=== PATIENT | female | born 1975 | race Hispanic/Latino ===

== ENCOUNTER 2021-08-02 14:56 | Emergency (ER) | payer MEDICAID, OTHER ==
--- NOTE | 2021-08-02 15:39 | Emergency Department Report ---
HPI - General Chief Complaint: Wound/Laceration Time Seen by Provider: 08/02/21 15:13 - HPI HPI: 46-year-old female presents to the emergency department via EMS from home with complaint of a progressively worsening, painful, ulceration to the le ft inner thigh. The patient has a history of fibromyalgia, anemia requiring transfusions, and has severe morbid obesity. She denies any trauma or injury that initially started this ulceration. This initially started in April and it was much smaller at that time. However, since that time, she says that every time she was to get up and ambulate that "it would tear some of my skin." Over the past few months she has become bed bound. Her daughter has been trying to do home wound care for her. She denies any fever, bleeding, discharge. ED Past Medical Hx - Past Medical History Hx Hypertension: Yes Hx Psychiatric Treatment: Yes (depression,anxiety,insomnia) Additional medical history: fibromyalgia, back/shoulder issues - Surgical History Hx Cholecystectomy: Yes Additional Surgical History: D&CX2, gastric bypass, peterson breast reduction, All extremities S/P from [facility] [place] - Social History Smoking Status: Never Smoker Substance Use Type: None - Medications Home Medications: Home Medications Medication Instructions Recorded Confirmed Last Taken Type Chlorhexidine Mouthwash [Peridex] 15 ml MM BID #1 bottle 03/24/19 Unknown Rx Clindamycin [Clindamycin CAP] 300 mg PO Q8H #30 cap 11/18/19 Unknown Rx Multivitamin/Iron/Folic Acid 1 each PO DAILY #30 tablet 11/18/19 Unknown Rx [Multivitamin with Iron Tablet] Prenat 115/Iron Fum/Folic/Dss 1 each PO DAILY #30 tablet 11/18/19 Unknown Rx [Pnv-Ferrous Lhbtqneg-Etne-IQ] Nystatin [Nystop Powder] 1 applicatio TP BID #1 bottle 08/02/21 Unknown Rx Sulfamethoxazole/Trimethoprim 1 each PO BID #14 tab 08/02/21 Unknown Rx [Bactrim DS TAB] traMADoL [Ultram 50 MG tab] 50 mg PO Q6HR PRN #12 tablet 08/02/21 Unknown Rx ED Review of Systems ROS: Stated complaint: Possible Sepsis Other details as noted in HPI Comment: All other systems reviewed and negative Constitutional: denies: chills, fever Eyes: denies: eye pain, vision change ENT: denies: ear pain, throat pain Respiratory: denies: cough, shortness of breath Cardiovascular: denies: chest pain, palpitations Gastrointestinal: denies: abdominal pain, vomiting Genitourinary: denies: dysuria, discharge Musculoskeletal: denies: back pain, arthralgia Skin: other (painful skin ulceration to inner left thigh). denies: rash, lesions Neurological: denies: numbness, paresthesias Physical Exam - Physical Exam Vital Signs: Vital Signs 08/02/21 15:01 Temperature 97.4 F L Pulse Rate 87 Respiratory 16 Rate Blood Pressure 131/76 [Right] O2 Sat by Pulse 96 Oximetry Physical Exam: GENERAL: The patient is well-developed well-nourished. HENT: Normocephalic. Atraumatic. Patient has moist mucous membranes. EYES: Extraocular motions are intact. NECK: Supple. Trachea is midline. CHEST/LUNGS: Clear to auscultation. There is no respiratory distress noted. HEART/CARDIOVASCULAR: Regular. There is no tachycardia. There is no murmur. ABDOMEN: Abdomen is soft, nontender. Patient has normal bowel sounds. Severe morbid obesity. SKIN: Skin is warm and dry. There is a stage III ulcer seen to the soft tissue of the medial thigh with some exposed subcutaneous fat and the ulcer is about 10 centimeters in its greatest dimension. No surrounding erythema. No bleeding or purulent discharge. NEURO: The patient is awake, alert, and oriented. The patient is cooperative. The patient has no focal neurologic deficits. Normal speech. MUSCULOSKELETAL: There is no tenderness or deformity. There is no limitation range of motion. There is no evidence of acute injury. ED Course Vital Signs 08/02/21 15:01 Temperature 97.4 F L Pulse Rate 87 Respiratory 16 Rate Blood Pressure 131/76 [Right] O2 Sat by Pulse 96 Oximetry ED Medical Decision Making - Lab Data Result diagrams: 08/02/21 15:40 08/02/21 15:40 - Radiology Data Radiology results: report reviewed LEFT FEMUR 2 VIEWS INDICATION / CLINICAL INFORMATION: left inner thigh ulcerati on COMPARISON: None available. FINDINGS: BONES / JOINT(S): No acute fracture or subluxation. No bony destruction identified. SOFT TISSUES: No significant abnormality. ADDITIONAL FINDINGS: None. - Medical Decision Making This patient presents to the emergency department with a complaint of a painful ulcer to the inner left thigh that has been going on and getting progressively worse since about October of last year. The patient came in today because she has a difficult time with ambulation chronically, and has difficulty following up in any type of outpatient setting. Therefore, with family's encouragement she decided to try and get this evaluated in the emergency department and called for EMS. The patient has severe morbid obesity with a BMI of 83. She appears to have some distorted anatomy due to her obesity. The adipose tissue from the upper pelvis and lower abdomen hangs downto the level of her knees. Similarly, the adipose tissue from the thigh ends up posteriorly to the point where she is laying on her own thigh tissue and it is abutting the soft tissue of her abdomen and upper pelvic region. The patient was able to assist in visualizing the ulcer. It is about 10 cm in its greatest diameter and is about a stage III ulcer going into the subcutaneous tissue. There is no surrounding erythema, bleeding, purulent discharge. Patient's vital signs have been reassuring including being afebrile. There is no leukocytosis. Overall this does not appear to be an infected ulcer or wound. An x-ray was done of the left femur that includes the ulcerated tissue and there is no evidence of any gas or signs of osteomyelitis. This does not appear consistent with gas gangrene, any type of necrotizing infection. Her CMP is remarkable for mild hyperkalemia with potassium level of 5.3, and an elevated AST that is most likely secondary to hepatic steatosis. The patient was given a small dose of Kayexalate for the hyperkalemia. Given the mild transaminitis we discussed avoiding alcohol and Tylenol/acetaminophen. The patient is also been given a referral for [facility]. [facility] was contacted and has initiated a referral for home health care to include PT, OT and wound care. In case the patient is able to get to an outpatient referral, she has also been given a referral for the local wound care clinic. She has been discharged home with a prescription for pain medication, and antibiotic for empiric treatment. We discussed signs and symptoms of infection for which she will need to return immediately to the closest emergency department. She will return with any worsening of her symptoms or with any acute distress. Critical Care Time: No Critical care attestation.: If time is entered above; I have spent that time in minutes in the direct care of this critically ill patient, excluding procedure time. ED Disposition Clinical Impression: Hyperkalemia, Elevated liver enzymes Skin ulcer of left thigh Qualifiers: Non-pressure ulcer stage: with fat layer exposed Qualified Code(s): L97.122 - Non-pressure chronic ulcer of left thigh with fat layer exposed Disposition: 01 HOME / SELF CARE / HOMELESS Is pt being admited?: No Condition: Stable Instructions: Negative Pressure Wound Therapy Home Guide, Hyperkalemia, Wound Care, Adult Additional Instructions: The block and case maker is sending in a referral for you to be assessed for home health care to include physical therapy, occupational therapy, and wound care. I am also giving you a referral for the local wound care clinic. Make sure the area remains dry. You can clean the area with soap and water you can clean the area with soap and water but make sure it remains dry. Please continue to monitor the area for signs and symptoms of infection such as increased pain, increased swelling, surrounding redness, discharge of pus, or development of fever. Take all medications as prescribed. Your labs today show an elevation in one of your liver enzymes, AST. Because of this, please avoid any alcohol or Tylenol/acetaminophen use. I am giving you a referral for [facility], or this can be followed by your primary care physician. Please follow-up with a primary care physician in the next few days. You have been prescribed a medication that is sedating and therefore should not be taken prior to driving, working, and responsible for children and in no way should be mixed with alcohol of any quantity. Return to the emergency department with any worsening of your symptoms, new or concerning symptoms not addressed during this current emergency department visit, or with any acute distress. Prescriptions: Sulfamethoxazole/Trimethoprim [Bactrim DS TAB] 1 each PO BID #14 tab Nystatin [Nystop Powder] 1 applicatio TP BID #1 bottle traMADoL [Ultram 50 MG tab] 50 mg PO Q6HR PRN #12 tablet PRN Reason: Pain Referrals: [facility] [Provider Group] - 3-5 Days [facility] [Outside] - 3-5 Days Time of Disposition: 17:50
[2021-08-02 16:02] LABS: Basophils # (Auto) 0.1 K/mm3 (0.0-0.1); Basophils % (Auto) 0.5 % (0.0-1.8); Eosinophils # (Auto) 0.1 K/mm3 (0.0-0.4); Eosinophils % (Auto) 1.2 % (0.0-4.3); Hematocrit 44.3 % (30.3-42.9); Hemoglobin 14.3 gm/dl (10.1-14.3); Lymphocytes # (Auto) 2.8 K/mm3 (1.2-5.4); Lymphocytes % (Auto) 29.3 % (13.4-35.0); Mean Corpuscular HGB Conc 32 % (30-34); Mean Corpuscular Volume 96 fl (79-97); Monocytes # (Auto) 0.8 K/mm3 (0.0-0.8); Monocytes % (Auto) 7.9 % (0.0-7.3); Platelet Count 323 K/mm3 (140-440); Red Blood Count 4.61 M/mm3 (3.65-5.03); Red Cell Distribution Width 15.6 % (13.2-15.2)
[2021-08-02 16:15] LABS: Alanine Aminotransferase 39 units/L (7-56); Albumin 3.5 g/dL (3.9-5); BUN/Creatinine Ratio 20; Blood Urea Nitrogen 18 mg/dL (7-17); Calcium 9.6 mg/dL (8.4-10.2); Hemolysis Index 157
--- NOTE | 2021-08-02 16:40 | XRay Report ---
LEFT FEMUR 2 VIEWS INDICATION / CLINICAL INFORMATION: left inner thigh ulceration COMPARISON: None available. FINDINGS: BONES / JOINT(S): No acute fracture or subluxation. No bony destruction identified. SOFT TISSUES: No significant abnormality. ADDITIONAL FINDINGS: None. Signer Name: Dixon Abdi MD Signed: 08/02/2021 4:36 PM Workstation Name: [id number]
[2021-08-02] MEDS ORDERED: SODIUM POLYSTYRENE 15 GM/60 ML ORAL LIQD PO ONE (16:49)
[2021-08-02] MEDS ORDERED: MORPHINE 4 MG/1 ML INJ IV ONE (16:58)
[2021-08-02 19:13] VITALS: BP 147/90
== END 2021-08-02 19:13 | disposition home or self-care (01) ==
LOC: ED 14:56
DX: L97.121 Non-pressure chronic ulcer of left thigh limited to breakdown of skin (principal); E87.5 Hyperkalemia; R74.01 Elevation of levels of liver transaminase levels; I10 Essential (primary) hypertension; M79.7 Fibromyalgia; Z98.890 Other specified postprocedural states; Z88.0 Allergy status to penicillin; Z88.1 Allergy status to other antibiotic agents
CPT/HCPCS: 36415; 73552; 80053; 85025; 96365; 96375; 99284; J2270; J7502

== ENCOUNTER 2021-08-25 08:45 | Outpatient (CLI) | payer OTHER ==
[2021-08-25] MEDS ORDERED: LIDOCAINE (4%) 40 MG/ML TOPICAL SOLN 50 ML BOTTLE TP SCH (10:00)
== END 2021-08-25 08:46 | disposition home or self-care (01) ==
LOC: WOUND 08:45
PROVIDERS: ATTEND Surgery
DX: S71.111A Laceration without foreign body, right thigh, initial encounter (principal); S70.312A Abrasion, left thigh, initial encounter; L97.112 Non-pressure chronic ulcer of right thigh with fat layer exposed; L97.122 Non-pressure chronic ulcer of left thigh with fat layer exposed; K21.9 Gastro-esophageal reflux disease without esophagitis; I48.91 Unspecified atrial fibrillation; I10 Essential (primary) hypertension; E66.01 Morbid (severe) obesity due to excess calories; F41.9 Anxiety disorder, unspecified; F32.9 Major depressive disorder, single episode, unspecified; Z90.49 Acquired absence of other specified parts of digestive tract; Z68.45 Body mass index [BMI] 70 or greater, adult; X58.XXXA Exposure to other specified factors, initial encounter; Y93.89 Activity, other specified; Y92.89 Other specified places as the place of occurrence of the external cause; Y99.8 Other external cause status

== ENCOUNTER 2021-09-22 09:50 | Outpatient (CLI) | payer OTHER ==
[2021-09-22] MEDS ORDERED: LIDOCAINE (4%) 40 MG/ML TOPICAL SOLN 50 ML BOTTLE TP SCH (11:00)
== END 2021-09-22 09:51 | disposition home or self-care (01) ==
LOC: WOUND 09:50
PROVIDERS: ATTEND Surgery
DX: L97.122 Non-pressure chronic ulcer of left thigh with fat layer exposed (principal); L97.112 Non-pressure chronic ulcer of right thigh with fat layer exposed; I10 Essential (primary) hypertension; E66.01 Morbid (severe) obesity due to excess calories; F32.9 Major depressive disorder, single episode, unspecified; F41.9 Anxiety disorder, unspecified; Z68.45 Body mass index [BMI] 70 or greater, adult; Z79.899 Other long term (current) drug therapy; Z88.1 Allergy status to other antibiotic agents; Z88.0 Allergy status to penicillin; Z90.49 Acquired absence of other specified parts of digestive tract

== ENCOUNTER 2021-11-19 10:29 | Outpatient (CLI) | payer OTHER ==
[2021-11-19] MEDS ORDERED: LIDOCAINE (4%) 40 MG/ML TOPICAL SOLN 50 ML BOTTLE TP ONE (12:00)
== END 2021-11-19 10:30 | disposition home or self-care (01) ==
LOC: WOUND 10:29
PROVIDERS: ATTEND Surgery
DX: L97.122 Non-pressure chronic ulcer of left thigh with fat layer exposed (principal); S70.312D Abrasion, left thigh, subsequent encounter; L97.112 Non-pressure chronic ulcer of right thigh with fat layer exposed; I10 Essential (primary) hypertension; E66.01 Morbid (severe) obesity due to excess calories; M79.7 Fibromyalgia; F32.9 Major depressive disorder, single episode, unspecified; F41.9 Anxiety disorder, unspecified; Z68.45 Body mass index [BMI] 70 or greater, adult; Z79.899 Other long term (current) drug therapy; X58.XXXD Exposure to other specified factors, subsequent encounter
CPT/HCPCS: 99213; G0463

== ENCOUNTER 2021-11-26 11:14 | Outpatient (CLI) | payer OTHER ==
[2021-11-26] MEDS ORDERED: LIDOCAINE (4%) 40 MG/ML TOPICAL SOLN 50 ML BOTTLE TP ONE (14:18)
== END 2021-11-26 11:15 | disposition home or self-care (01) ==
LOC: WOUND 11:14
PROVIDERS: ATTEND Surgery
DX: L97.122 Non-pressure chronic ulcer of left thigh with fat layer exposed (principal); S70.312D Abrasion, left thigh, subsequent encounter; L97.112 Non-pressure chronic ulcer of right thigh with fat layer exposed; I10 Essential (primary) hypertension; E66.01 Morbid (severe) obesity due to excess calories; M79.7 Fibromyalgia; F32.9 Major depressive disorder, single episode, unspecified; F41.9 Anxiety disorder, unspecified; Z68.45 Body mass index [BMI] 70 or greater, adult; Z79.899 Other long term (current) drug therapy; X58.XXXD Exposure to other specified factors, subsequent encounter
CPT/HCPCS: 99213; G0463